=== PATIENT | male | born 1990 | race Caucasian/White ===

== ENCOUNTER → 2016-07-20 20:27 | Outpatient (CLI) | payer MEDICAID ==
[2014-05-04 08:41] VITALS: BMI 20.3
[~2016-07-20 20:27] MED LIST: HYDROCODON-ACE1 EAC7 PO; MOBIC7.5 MG PO
== END | disposition home or self-care (01) ==
LOC: D.SLEEP 07-13 20:00
DX: G47.9 Sleep disorder, unspecified (principal)

== ENCOUNTER 2017-01-31 06:22 | Outpatient (CLI) | payer MEDICAID ==
--- NOTE | ~2017-01-31 | HEMODYNAMI ---
PATIENT:ANTONIETTA MONTGOMERY MEDICAL RECORD: [id number] : 86 LOCATION:[facility] ADMISSION DATE: 01/31/17 Generatedon:01/31/20179:46 Patient name: ANTONIETTA MONTGOMERY Patient #: [id number] SSN: : 1990 Date of study: 01/31/2017 Page: Of Hemodynamic Procedure Report Patient Data Patient Demographics Procedure consent was obtained First Name: ANTONIETTA Gender: Male Last Name: ULISES : 1990 Patient #: [id number] Age: 26 year(s) Race: Unknown Additional ID: [id number] Contact details Address: [address] [place], [place] [address] State: [place] City: [facility] Zip code: [address] Past Medical History Allergies Allergen Reaction Date Comments Reported Other allergy 01/31/2017 Admission Admission Data Admission Date: 01/31/2017 Admission Time: 6:22 Lab Results Lab Result Date: 01/31/2017 Lab Result Time: 7:00 Biochemistry Name Units Result Min Max BUN mg/dl 16 --(---*)-- 7 18 Creatinine mg/dl 0.8 --(-*--)-- 0.6 1.3 CBC Name Units Result Min Max Hematocrit % 38.3 *-(----)-- 42 54 Hemoglobin g/dl 12.8 -*(----)-- 13.5 17.5 Procedure Procedure Types Cath Procedure Diagnostic Procedure PPM/ICD PPM Dual Implant Miscellaneous Procedures Moderate Sedation up to 45 minutes Procedure Description Procedure Date Procedure Date: 01/31/2017 Procedure Start Time: 9:36 Procedure End Time: 9:43 Procedure Staff Name Function Pasha Nelson MD Performing Physician Angelina Montilla RT Scrub Santos Barajas RN Nurse Placido Hutchison RT Monitor Procedure Data Cath Procedure Fluoroscopy Diagnostic fluoroscopy Total fluoroscopy Time: 6.6 time: 6.6 min min Diagnostic fluoroscopy Total fluoroscopy dose: dose: 82.4 mGy 82.4 mGy Contrast Material Contrast Material Type Amount (ml) Visipaque 270 30 Estimated blood loss: 5 ml Procedure Complications No complications Procedure Medications Medication Administration Route Dosage Oxygen NC 2 l/min Ancef (1Gm/50ml NS) I.V.P.B 1 g Ancef Irrigation Topical 1 g (1gm/500ml NS) Lidocaine 1% added to field 20 Zofran I.V. 4 mg Versed I.V. 2 mg Versed I.V. 2 mg 0.9% NaCl I.V. bolus 1000 ml Versed I.V. 1 mg Fentanyl I.V. 25 mcg Versed I.V. 1 mg Fentanyl I.V. 25 mcg Hemodynamics Rest HGB: 12.8 (g/dl) Heart Rate: 38 (bpm) Snapshots Pre Cath Intra NCS Post Cath Vital Signs Time Heart Resp SPO2 NIBP (mmHg) Rhythm Pain Sedation Rate (ipm) (%) Status Level (bpm) 8:29:14 42 14 100 122/85(102) SB 0 (11) 10(A) , No pain 8:33:30 39 18 98 123/77(101) SB 0 (11) 10(A) , No pain 8:38:00 55 14 98 122/73(105) SB 0 (11) 10(A) , No pain 8:43:20 37 19 98 119/74(90) SB 0 (11) 10(A) , No pain 8:47:34 42 20 98 123/80(102) SB 0 (11) 10(A) , No pain 8:51:43 46 18 99 117/84(100) SB 0 (11) 10(A) , No pain 8:55:55 37 10 97 125/79(101) SB 0 (11) 10(A) , No pain 9:00:13 41 15 98 118/75(91) SB 0 (11) 10(A) , No pain 9:04:25 42 15 96 117/86(106) SB 0 (11) 10(A) , No pain 9:08:37 44 18 98 125/81(96) SB 0 (11) 10(A) , No pain 9:13:51 60 12 97 126/95(112) SB 0 (11) 10(A) , No pain 9:18:03 49 16 96 126/72(105) SB 0 (11) 10(A) , No pain 9:22:19 38 13 97 126/79(97) SB 0 (11) 10(A) , No pain 9:26:31 46 13 96 121/81(103) SB 0 (11) 10(A) , No pain 9:30:41 60 11 94 122/91(107) SB 0 (11) 10(A) , No pain 9:34:51 60 17 96 139/94(127) SB 0 (11) 10(A) , No pain 9:39:10 60 16 96 131/89(111) SB 0 (11) 10(A) , No pain 9:43:57 59 24 98 148/98(132) SB 0 (11) 10(A) , No pain Medications Time Medication Route Dose Verified Delivered Reason Notes Effective ness by by 8:20:27 Ancef I.V.P.B 1 g Pasha Buffie used for (1Gm/50ml Leslie Barajas vegetable i farmworker NS) 8:25:17 Oxygen NC 2 Pasha Buffie used for l/min Leslie Baraajs vegetable i farmworker 8:25:46 Ancef Topical 1 g Pasha Buffie used for Irrigation Leslie Barajas vegetable i farmworker (1gm/500ml NS) 8:26:02 Lidocaine added 20ml Pasha Pasha for local 1% to vial Leslie Nelson MD anesthetic field MD 8:37:50 Zofran I.V. 4 mg Pasha Buffie Per Leslie Barajas RN physician 8:41:03 Versed I.V. 2 mg Pasha Buffie for Leslie Barajas RN sedation 8:44:14 Versed I.V. 2 mg Pasha Buffie for Leslie Barajas RN sedation 9:00:24 0.9% NaCl I.V. 1000 Pasha Buffie Per bolus ml Leslie Barajas RN physician 9:13:05 Versed I.V. 1 mg Pasha Buffie for Leslie Barajas RN sedation 9:13:13 Fentanyl I.V. 25 Pasha Buffie for mcg Leslie Barajas RN sedation 9:18:14 Versed I.V. 1 mg Pasha Buffie for Leslie Barajas RN sedation 9:18:19 Fentanyl I.V. 25 Pasha Buffie for mcg Leslie Barajas RN sedation Procedure Log Time Note 8:05:42 Angelina Montilla RT(R) sent for patient. Start room use. 8:05:43 Time tracking: Regular hours 8:05:46 Plan of Care:Hemodynamics will remain stable., Cardiac rhythm will remain stable., Comfort level will be maintained., Respiratory function will remain adequate., Patient/ family verbilizes understanding of procedure., Procedure tolerated without complication., Recovers from procedure without complications.. 8:16:31 Patient received from Pre/Post Procedure Room to CCL 3 Alert and oriented. Tansferred to table in Supine position. 8:16:32 Warm blankets applied, and magdi hugger turned on for patient comfort. 8:16:32 Correct patient and procedure confirmed by team. 8:16:33 Signed procedure consent form obtained from patient. 8:16:35 ECG and BP/O2 sat monitors applied to patient. 8:16:37 Pre-procedure instructions explained to patient. 8:16:37 Pre-op teaching completed and patient verbalized understanding. 8:16:38 Family in waiting room. 8:16:39 Patient NPO since Midnight. 8:17:06 Patient allergic to Other allergy 8:17:08 Is the patient allergic to Iodine/contrast media? No. 8:17:13 Is patient on blood thinner?No 8:20:27 Ancef (1Gm/50ml NS) 1 g I.V.P.B was administered by Santos Barajas RN; used for procedure; 8:25:17 Oxygen 2 l/min NC was administered by Santos Barajas RN; used for procedure; 8:25:46 Ancef Irrigation (1gm/500ml NS) 1 g Topical was administered by Santos Barajas RN; used for procedure; 8:26:02 Lidocaine 1% 20ml vial added to field was administered by Pasha Nelson MD; for local anesthetic; 8:27:59 Vital chart was started 8:28:04 Rhythm: sinus bradycardia 8:28:05 Full Disclosure recording started 8:28:16 H&P Date Dictated: 01/24/2017 Within 30 days and on chart., H&P Addendum completed by physician on day of procedure. (MUST COMPLETE FOR ALL OUTPATIENTS). 8:28:28 Patient diabetic? No. 8:28:37 Previous problem with sedation/anesthesia? Yes NAUSEA 8:28:38 Snore? No 8:28:39 Sleep apnea? No 8:28:40 Deviated septum? No 8:28:40 Opens mouth fully? Yes 8:28:41 Sticks out tongue? Yes 8:28:43 Airway obstruction? No \ 8:28:50 Dentures? No ? 8:28:54 Patient pain scale 0/10 ?. 8:29:46 IV patent on arrival in left antecubital with 0.9% NaCl at [facility]. 8:32:12 Lab Result : BUN 16 mg/dl 8:32:12 Lab Result : Hemoglobin 12.8 g/dl 8:32:12 Lab Result : Creatinine 0.8 mg/dl 8:32:12 Lab Result : Hematocrit 38.3 % 8:32:14 Lab results completed and on chart. 8:32:21 Left chest area was prepped with chlora-prep and draped in sterile fashion 8:32:23 Alarms reviewed by R. N. 8:32:23 Sharps counted by scrub and verified by R.N. 8:32:34 Medtronic community service representative KIKI PENNYOE present for procedure. 8:32:42 Use device set Pacemaker Set 8:32:46 Immobilizer Large opened to sterile field. 8:32:47 Cautery Pushbutton Pencil opened to sterile field. 8:32:48 Cautery Tip Education Officer opened to sterile field. 8:32:50 2-0 Vicryl Plus [id number] opened to sterile field. 8:32:50 2.0 Silk 685H opened to sterile field. 8:32:51 Stapler Skin 35W Proximate Plus opened to sterile field. 8:33:22 Pre sharps counted by scrub and verified by RN: Sutures: 2 Sponges: 5 Stick needles: 4 Skin needles: 2 Blade: 1 Cautery: 1 8:33:30 Grounding pad site Left hip. 8:33:32 Grounding pad site free from injury. 8:33:37 Physician arrived 8:33:38 --------ALL STOP TIME OUT------ 8:33:38 Final Timeout: patient, procedure, and site verified with staff and physician. All members of the team are in agreement. 8:33:40 Left chest site verified by team. 8:33:43 Physical assessment completed. ASA score P 2 - A patient with mild systemic disease as per Pasha Nelson MD. 8:33:45 Sedation plan: IV Moderate Sedation Versed, Fentanyl 8:34:17 Cook 4Fr Micropuncture (I94828) opened to sterile field. 8:34:18 Cook 4Fr Micropuncture (X27079) opened to sterile field. 8:35:29 Baseline sample Acquired. 8:37:50 Zofran 4 mg I.V. was administered by Santos Barajas RN; Per physician; 8:38:00 Procedure started. 8:38:59 Lidocaine 2% to left subclavicular area by Pasha Nelson MD. 8:39:44 Medtronic Advisa MRI PPM Dual Generator [id number] opened to sterile field. 8:40:33 Medtronic 5076-45 PPM Lead opened to sterile field. 8:40:34 Medtronic 4074-52 PPM Lead opened to sterile field. 8:41:03 Versed 2 mg I.V. was administered by Santos Barajas RN; for sedation; 8:44:14 Versed 2 mg I.V. was administered by Santos Barajas RN; for sedation; 8:45:00 Incision made to left subclavicular area. 8:47:25 Generator pocket made/opened. 9:00:24 0.9% NaCl 1000 ml I.V. bolus was administered by Santos Barajas RN; Per physician; 9:07:43 Constrast injected by Placido CARSON (R) for access. 9:07:53 Left subclavian vein accessed with 4Fr Micropuncture. 9:07:55 Terumo 7Fr Adak Sheath opened to sterile field. 9:08:06 Left subclavian vein accessed with 7Fr Peel Away Sheath. 9:09:54 Left subclavian vein accessed with 4Fr Micropuncture. 9:13:05 Versed 1 mg I.V. was administered by Santos Barajas RN; for sedation; 9:13:13 Fentanyl 25 mcg I.V. was administered by Santos Barajas RN; for sedation; 9:18:14 Versed 1 mg I.V. was administered by Santos Barajas RN; for sedation; 9:18:19 Fentanyl 25 mcg I.V. was administered by Santos Barajas RN; for sedation; 9:20:15 Ventricular lead inserted and advanced. 9:20:17 Atrial lead inserted and advanced. 9:20:23 Ventricular lead positioned. 9:21:23 Ventricular lead tested. 9:22:51 Peel-a-way sheath was split and removed. 9::58 Ventricular lead attachment was completed with 2-0 silk. 9:25:28 Atrial lead positioned. 9::53 Atrial lead tested. 9::58 Peel-a-way sheath was split and removed. 9:27:01 Atrial lead attachment was completed with 2-0 silk. 9:29:45 PPM Dual was attached to lead(s) and inserted into pocket. 9:31:14 Device pocket was irrigated with Ancef. 9:31:21 Generator was sutured in place with 2-0 silk. 9:31:38 Parameters-- Generator: Mode: mvp. Lower Rate: 60bpm. Upper Rate: 120bpm. 9:31:59 Parameters--Atrial P/R Wave: 4.5mV. Current: 0.8mA; Threshold: 2.0V; Impedence: 650OHMS. 9:32:21 Parameters--Ventricular P/R Wave: 7.6mV. Current: 0.9mA; Threshold: 1.2V; Impedence: 1529OHMS. 9:34:31 Subcutaneous closure was completed with 2-0 vicryl. 9:35:49 Skin closure was completed with 35mm Wellington. 9:38:09 Lt Chest incision was dressed with 4 x 4 and Tegaderm. 9:38:25 Procedure ended.(Physican Out) 9:40:12 Fluoroscopy time 06.60 minutes. 9:40:19 Fluoroscopy dose: 82.4 mGy 9:40:19 Flurop Dose total: 82.4 9:40:32 Contrast amount:Visipaque 270 30ml. 9:40:48 Post sharps counted by scrub and verified by RN: Sutures: 2 Sponges: 5 Stick needles: 4 Skin needles: 2 Blade: 1 Cautery: 1 9:40:53 Insertion/operative site no bleeding no hematoma. 9:41:07 Post Chest area:stable, soft, clean and dry 9:41:17 Post procedure rhythm: paced 9:41:19 Estimated blood loss: 5 ml 9:41:20 Post procedure instruction explained to patient.Patient verbalizes understanding. 9:41:21 Patient needs reinforcement of post procedure teaching. 9:41:57 Procedure type changed to Cath procedure, Diagnostic procedure, PPM/ICD, PPM Dual Implant, Miscellaneous Procedures, Moderate Sedation up to 45 minutes 9:42:56 Procedure and supply charges have been captured, reviewed, submitted and are correct. 9:42:58 Procedure Complication : No complications 9:43:01 Vital chart was stopped 9:43:01 See physician's report for complete and final results. 9:43:03 Report given to Pre/Post Procedure Room. 9:43:06 Patient transfered to Pre/Post Procedure Room with Stretcher. 9:43:08 Procedure ended. 9:43:08 Full Disclosure recording stopped 9:43:18 End room use (Document Last) Device Usage Item Name Manufacture Quantity Catalog Hospital Part Current Minimal Lot# / Number Charge Number Stock Stock Serial# Code Immobilizer Cardinal 1 [id number] 5 Large Health Cautery Microtek 1 [id number] 80061 [id number] 5 Pushbutton [employer] Pencil Cautery Tip Microtek 1 [id number] [id number] [id number] 575423 5 Education Officer [employer] 2-0 Vicryl Ethicon 1 [id number] 330286 720921 105824 5 Plus [id number] 2.0 Silk 685H Ethicon 1 685H 885326 97334 [id number] 5 Stapler Skin Unknown 1 [id number] [id number] 502740 768685 5 35W Proximate Plus Cook 4Fr [place] 2 [id number] 815884 137686 740578 5 Micropuncture ([id number]) Medtronic Medtronic 1 A2DR01 [id number] [id number] 5 Advisa MRI [id number] PPM Dual EXP: Generator 2018-06-06 A2DR01 Medtronic Medtronic 1 5076-45 [id number] 863434 5 5076-45 PPM [id number] Lead EXP: 2018-10-05 Medtronic Medtronic 1 4074-52 294231 539664 5 4074-52 PPM [id number] Lead EXP: 2018-11-27 Terumo 7Fr Terumo 1 [id number] [id number] 124640 5 Adak Sheath Signature Audit Venus Stage Time Signature Unsigned Intra-Procedure 01/31/2017 Placido Hutchison 9:46:08 AM RT(R) Signatures Monitor : Placido Hutchison RT Signature : Date : Time : [address] [place] [address]
[2017-01-31] MEDS ORDERED: ZOFRAN4 MG PO (06:41)
[2017-01-31] MEDS ORDERED: FLUDROCORTISON0.1 MG PO (06:42)
[2017-01-31] MEDS ORDERED: REMERON30 MG PO (06:42)
[2017-01-31] MEDS ORDERED: KLONOPIN1 MG PO (06:43)
[2017-01-31 06:44] VITALS: BP 96/60; BMI 20.4
[2017-01-31 07:15] LABS: HEMATOCRIT 38.3 % (42.0-54.0); HEMOGLOBIN 12.8 g/dL (13.5-17.5); MCHC 33.4 g/dL (31.0-37.0); MCV 92.7 fL (80.0-100.0); MEAN PLATELET VOLUME 11.3 fL (7.4-10.4); RBC 4.13 10x6/uL (4.20-6.10); RDW 13.9 % (11.5-14.5); WBC 4.9 10x3/uL (4.8-10.8)
[2017-01-31 07:32] LABS: CALC OSMOLALITY 278 mosm/kg (275-300); CALCIUM 9.2 mg/dL (8.5-10.1); CARBON DIOXIDE 29.2 mmol/L (21.0-32.0); CHLORIDE - SERUM 105 mmol/L (98-107); CREATININE - SERUM 0.8 mg/dL (0.6-1.3); GLUCOSE 94 mg/dL (74-106); POTASSIUM - SERUM 4.1 mmol/L (3.5-5.1); SODIUM 139 mmol/L (136-145); UREA NITROGEN 16 mg/dL (7-18); eGFR NON AFRICAN AMERICAN > 90 mL/min (90-120)
--- NOTE | 2017-01-31 10:15 | NUR ---
ROOM AIR, NO RESP DISTRESS. LEFT CHEST DRESSING CDI, NO BLEEDING NOTED. NO C/O NAUSEA OR PAIN AT THIS TIME. VSS. CALL LIGHT WITHIN REACH.
--- NOTE | 2017-01-31 10:45 | NUR ---
SMALL HEMATOMA NOTED TO LEFT CHEST. DR. SAMPSON NOTIFIED.
--- NOTE | 2017-01-31 11:08 | NUR ---
C/O PAIN TO LEFT CHEST. NOTIFIED DR. SAMPSON. REC'D ORDER FOR PAIN MEDICATION AND TO ADMIT OVERNIGHT.
--- NOTE | 2017-01-31 11:26 | NUR ---
REPORT CALLED TO TRICIA BURNS ON MED 2.
[2017-01-31 12:00] VITALS: BP 126/83
--- NOTE | 2017-01-31 12:11 | NUR ---
TAKEN TO ROOM 2123 VIA WHEELCHAIR BY CATH PING PONG TABLE ASSEMBLER.
--- NOTE | 2017-01-31 12:16 | NUR ---
TRANSFERED FROM FORESTER AIDE BY W/C.LEFT CHEST DRSG CLEAN AND DRY. LEFT ARM IN SLING. OREINTED TO ROOM. CALL LIGHT IN REACH. WILL CONT. PLAN OF CARE.
[2017-01-31 12:22] VITALS: BP 126/83; BMI 20.4
--- NOTE | 2017-01-31 14:56 | NUR ---
IV AND TELEMETRY DCD. DC PLANS GIVEN. UNDERSTANDING VOICED.
[2017-01-31 16:00] VITALS: BP 124/93
--- NOTE | 2017-01-31 19:25 | NUR ---
RESUMED CARE OF PT, LYING IN BED RESPIRATIONS EVEN AND UNLABORED ON ROOM AIR. LEFT CHEST INCISIONAL PAIN, CHEST MARKED FROM PREVIOUS HEMATOMA. NO SWELLING OR BRUSING NOTED AROUND PRESSURE DRESSING. WILL CONTINUE TO MONITOR. SEE NURSE ASSESSMENT. CALL LIGHT IN REACH.
--- NOTE | 2017-01-31 20:06 | NUR ---
DILAUDID 1MG IVP FOR INCISIONAL PAIN 8:10. WILL CONTINUE TO MONITOR.
[2017-01-31 20:32] VITALS: BP 120/85
[2017-02-01 00:05] VITALS: BP 127/92
--- NOTE | 2017-02-01 04:59 | NUR ---
DILAUDID 1MG IVP FOR INCISIONAL PAIN , WILL CONTINUE WITH PLAN OF CARE.
[2017-02-01 05:21] VITALS: BP 129/82
--- NOTE | 2017-02-01 07:30 | NUR ---
ASSESSMENT COMPLETED. TELEMERTY SHOWS PACED RHYTHM AT 60. SLING TO LEFT ARM PACER SITE TO LEFT CHEST WITH DRSG DRY AND INTACT. NO SWELLING NOTED. C/O HEADACHE ORDER FOR TYLENOL RECIEVED. C/O NAUSEA. ZOFRAN GIVEN. PT VOMITED ZOFRAN AND TYLENOL UP. WILL GET ORDER FOR IV ZOFRAN. WANTS DILAUDID BUT I EXPLAINED IT WOULD BE 10 BEFORE I COULD GIVE IT.
--- NOTE | 2017-02-01 07:45 | NUR ---
LEFT CHEST DRSG CLEAN AND DRY. LEFT ARM IN SLING. CONT. TO C/O PAIN AND NAUSEA. NURSE NOTIFIED.
[2017-02-01] MEDS ORDERED: KEFLEX500 MG PO (08:09)
[2017-02-01 08:23] VITALS: BP 135/83
--- NOTE | 2017-02-01 08:56 | NUR ---
AK UPSET TERESA WANTS HIS IV OUT AND TELEMERTY OFF. I TOLD HIM THAT I COULD IN A FEW MINS WHEN I FINISHED WITH ANOTHER AK. HE TOOK HIS MONITOR OFF AND WAS TAKING HIS IV LOOSE. I TOOK HIS IV OUT AND TOLD HIS DAD THAT IT WOULD BE A FEW MINUETS UNTIL THE DISCHARGE WAS FINISHED. HE WILL WAIT
--- NOTE | 2017-02-01 09:27 | NUR ---
DISCHARGED. IV DCD WITH TIP INTACT. INSTRUCTIONS GIVEN TO PT AND DAD. PT REFUSED A WHEEL CHAIR AND WALKED WITH HIS DAD TO PRIVATE CAR.
== END 2017-02-01 09:30 ==
LOC: D.CATH 06:22 → D.M2 12:12 → D.CATH 02-01 09:30
PROVIDERS: Internal Medicine Cardiovascular Disease
DX: I49.5 Sick sinus syndrome (principal); I44.30 Unspecified atrioventricular block; Z01.812 Encounter for preprocedural laboratory examination; R07.9 Chest pain, unspecified; R55 Syncope and collapse